=== PATIENT | female | born 1990 | race Caucasian/White ===

== ENCOUNTER 2022-06-11 16:55 | Emergency (ER) | payer OTHER ==
[2022-06-11] MEDS ORDERED: PROPARACAINE 0.5% OPHTH DROPS 15 ML BTL LEFT EYE STA (18:28)
[2022-06-11] MEDS ORDERED: FLUORESCEIN STRIPS 1 MG STRIP LEFT EYE ONE (18:28)
[2022-06-11] MEDS ORDERED: TOBRAMYCIN 0.3% OPHTH DROPS 5 ML BTL LEFT EYE STA (19:25)
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
[2022-06-11 20:10] VITALS: BP 125/82; PULSE 72; RESP 16; TEMP 97.8
== END 2022-06-11 20:10 | disposition home or self-care (01) ==
LOC: EC 16:55
DX: H57.12 Ocular pain, left eye (principal)
CPT/HCPCS: 99283